=== PATIENT | female | born 1990 ===

== ENCOUNTER 2021-05-09 08:57 | Inpatient (IN) ==
[2021-05-09] MEDS ORDERED: OXYTOCIN 30 UNITS/500 ML BAG IV PRN (09:42)
--- NOTE | 2021-05-09 09:49 | History & Physical Report ---
Date of Service May 09, 2021 Assessment & Plan (1) with 38 completed weeks gestation: (2) Normal labor: Plan: admit. fetus category one. Discussed +/- of epidural and seems she wishes to proceed, will have anesthesia come in and speak with her. Had advised the patient and FOB that would need inspector balance wheel motion in labor and that he could not serve as inspector balance wheel motion for them in this higher pressure situation. anticipate . History of Present Illness Chief Complaint: labor Primary Care Provider: NO PCP Patient is a 30yo Tajik female who presents to labor and delivery complaining of contractions starting at 4am. She then had a gush of fluid on the way to the hospital at about 8:30. She is very uncomfortable and breathing through contractions. Patient is a [place] from [place] at 31 weeks. She has beta thalassemia confirmed by electorphoresis. FOB says he was tested in [place] and negative. She was diagnosed with GDM and has been diet controlled. last AC 39%. She is interviewed today with assistance of visual client professional. labs--A+/ab-/fi/rprnr/hepb-/hiv-/gc/ct-/ gtt 168/gbs neg Allergies Allergy/AdvReac Type Severity Reaction Status Date / Time No Known Allergies Allergy Verified 05/09/21 09:09 Home Medications Medication Instructions Recorded Confirmed Type prenat.vits,anahy,gmh-vzwv-pkyru 1 tab PO DAILY 05/08/21 05/09/21 History Patient History Medical History No known health problems Surgical History No history of previous surgery Social History Smoking Status: Never smoker Hx Alcohol Use: No Hx Substance Use: No Preferred Language: Tajik Communication Ability: Effective Supervisor Instrument Repair Required: Yes Beliefs That Will Affect Care: None marital status: marital status details: Hanny (37) [phone] Current Living Situation: Spouse Current Living Situation Comment: lives with angelitae current occupational status: unemployed Other Information That Helps Us Care for You: No Feels Safe at Home: Yes and No Is there a partner from a previous relationship who is making you feel unsafe now?: No Any Concerns about Your Family Situation: No Would You Like to Speak to Someone About Your Situation: No Safety Concerns: Feels Safe At This Time Assistive Devices: None OB History 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 History noncontributory Review of Systems All systems reviewed & are unremarkable except as noted in HPI & below Physical Exam Constitutional: WD/WN, vitals as above Gastrointestinal (Abdomen): soft, gravid, nt Psychiatric: A+Ox3, euthymic affect Genitourinary: cx--stretchy /-2 toco--q3 min efm--120s wtih mod variability, accels to 150s, no decels [facility] & Data ([facility]) Vital Signs (Past 12 Hours) Vital Signs Temp Pulse Resp BP 05/09/21 09:06 36.7 C 107 H 20 111/76 Code Status & VTE Plan VTE Prophylaxis Plan VTE Prophylaxis will be ordered: No Coding Level of Care Code None Diagnoses with 38 completed weeks gestation Z3A.38 Normal labor O80; Z37.9
[2021-05-09] MEDS ORDERED: BUPIVACAINE 0.25% 30 ML VIAL ONE ×2 (10:06→10:08)
[2021-05-09] MEDS ORDERED: ePHEDrine sulfate 50 MG/ML AMP ONE (10:06)
[2021-05-09] MEDS ORDERED: SODIUM CHLORIDE 0.9% INJ 10 ML VIAL ONE (10:06)
[2021-05-09] MEDS ORDERED: fentaNYL citrate 100 MCG/2 ML VIAL ONE (10:06)
[2021-05-09] MEDS ORDERED: fentaNYL 2MCG/ML ROPIVACAINE 1.25MG/ML 100 ML BAG EPI ONE (10:07)
[2021-05-09] MEDS: LACTATED RINGER'S 1,000 ML IV PRN ×2 (10:09→14:17)
--- NOTE | 2021-05-09 10:56 | Anesthesiology Consultation ---
Date of Service May 09, 2021 Assessment & Plan Chart Review Chart Review: Acceptable Risk for Labor Epidural Consults Requested none History Height/Weight Height: 5 ft 4 in Weight: 75.296 kg Allergies Allergy/AdvReac Type Severity Reaction Status Date / Time No Known Allergies Allergy Verified 05/09/21 09:09 Medications Home Medications Medication Instructions Recorded Confirmed Last Taken prenat.vits,anahy,dyr-dmal-kyhzq 1 tab PO DAILY 05/08/21 05/09/21 05/08/21 08:00 Active Medications Generic Name Dose Route Start Last Admin Trade Name Freq PRN Reason Stop Dose Admin Lactated Ringer's 1,000 mls @ 125 mls/hr 05/09/21 09:42 05/09/21 10:09 Lr IV 05/11/21 09:41 999 mls/hr .Q8H PRN Administration L&D Protocol Protocol Past Medical History Medical History No known health problems Past Family History Family History (Updated 05/09/21 @ 09:56 by Emy Naik RN) Other No history of previous surgery No known health problems Past Surgical History Surgical History No history of previous surgery Social History Smoking Status: Never smoker Hx Alcohol Use: No Hx Substance Use: No Physical Exam Vital Signs Last Vital Signs Temp 36.7 C 05/09/21 09:06 Pulse 100 H 05/09/21 10:54 Resp 20 05/09/21 10:40 BP 103/57 L 05/09/21 10:54 Pulse Ox 100 05/09/21 10:54 Testing Laboratory Results 05/09/21 10:05 POC Glucose 100 H
[2021-05-09] MEDS ORDERED: fentaNYL 2MCG/ML ROPIVACAINE 1.25MG/ML 100 ML BAG EPI PRN (10:59)
[2021-05-09] MEDS ORDERED: NALBUPHINE HCL INJ 10 MG/ML AMP IV PRN (10:59)
[2021-05-09] MEDS ORDERED: NALOXONE HCL 0.4 MG/1 ML VIAL/CARP IV PRN (10:59)
[2021-05-09] MEDS ORDERED: NALOXONE HCL 1 MG in SODIUM CHLORIDE 0.9% 1000ML 1,000 ML IV PRN (10:59)
[2021-05-09] MEDS ORDERED: diphenhydrAMINE 50 MG/ML VIAL IV PRN (10:59)
[2021-05-09] MEDS ORDERED: ePHEDrine sulfate 50 MG/ML AMP IV PRN (10:59)
[2021-05-09 11:04] LABS: Hemoglobin 10.5 g/dL (12.0-16.0); Mean Corpuscular Hemoglobin 19.8 pg (25-34); Mean Corpuscular Hgb Conc 31.8 g/dL (32-36); Mean Corpuscular Volume 62.3 fL (80-100); Platelet Count 254 K/uL (130-400); RDW Coefficient of Variation 15.3 % (11.5-14.5); RDW Standard Deviation 34.4 fL (36.4-46.3); White Blood Count 10.97 K/uL (4.8-10.8)
--- NOTE | 2021-05-09 12:51 | Labor Progress Brief Note ---
Date of Service May 09, 2021 Subjective comfortable with epidural, had a nap Assessment & Plan (1) with 38 completed weeks gestation: Plan: will begin stage 2. fetus category one. anticipate . Admission and Anticipated Discharge Date Admission Date: May 09, 2021 Physical Exam Physical Exam: cx--c/c/+2 toco--q2-3min efm--130s with mod variability, accels to 150s, no decels Results & Data ([facility]) Vital Signs (Past 12 Hours) Vital Signs Temp Pulse Resp BP Pulse Ox 05/09/21 12:45 91 H 105/69 05/09/21 12:44 83 99 05/09/21 12:39 80 99 05/09/21 12:34 74 100 05/09/21 12:32 81 109/76 05/09/21 12:29 93 H 100 05/09/21 12:24 100 H 100 05/09/21 12:19 89 100 05/09/21 12:17 97 H 105/76 05/09/21 12:14 95 H 100 05/09/21 12:09 76 100 05/09/21 12:04 85 100 05/09/21 12:02 89 110/74 05/09/21 12:00 20 05/09/21 11:59 72 100 05/09/21 11:54 80 100 05/09/21 11:49 88 100 05/09/21 11:45 98 H 103/69 05/09/21 11:44 83 100 05/09/21 11:39 74 100 05/09/21 11:34 91 H 100 05/09/21 11:30 71 20 104/65 05/09/21 11:29 82 100 05/09/21 11:25 90 105/71 05/09/21 11:24 84 100 05/09/21 11:20 83 105/66 05/09/21 11:19 88 100 05/09/21 11:17 67 107/68 05/09/21 11:14 72 100 05/09/21 11:10 75 107/68 05/09/21 11:09 79 100 05/09/21 11:05 84 103/70 05/09/21 11:04 92 H 100 05/09/21 11:00 71 18 102/65 05/09/21 10:59 74 100 05/09/21 10:58 90 105/67 05/09/21 10:56 36.7 C 90 20 111/64 05/09/21 10:54 100 H 103/57 L 100 05/09/21 10:52 72 96/57 L 05/09/21 10:50 71 102/65 05/09/21 10:49 70 99 05/09/21 10:48 68 106/65 05/09/21 10:46 69 104/64 05/09/21 10:44 67 102/64 97 05/09/21 10:42 60 135/73 05/09/21 10:40 62 20 108/67 05/09/21 10:39 63 100 05/09/21 10:34 73 96 05/09/21 10:29 84 100 05/09/21 10:24 72 100 05/09/21 10:22 94 H 92 05/09/21 10:19 76 99 05/09/21 09:06 36.7 C 107 H 20 111/76 Coding Level of Care Code None Diagnoses with 38 completed weeks gestation Z3A.38
--- NOTE | 2021-05-09 14:25 | Labor Progress Brief Note ---
Date of Service May 09, 2021 Subjective pushing about 1.25 hrs. Assessment & Plan (1) with 38 completed weeks gestation: Plan: pushing well. Fetus reassuring , making progress. anticipate . Admission and Anticipated Discharge Date Admission Date: May 09, 2021 Physical Exam Physical Exam: cx--c/c/+2-3 with push toco--q2-4min efm--130s with mod variability, variables with pushing. Results & Data ([facility]) Vital Signs (Past 12 Hours) Vital Signs Temp Pulse Resp BP Pulse Ox 05/09/21 14:22 97 H 89 L 05/09/21 14:19 81 116/61 99 05/09/21 14:16 112 H 160/115 H 05/09/21 14:14 72 100 05/09/21 14:09 84 100 05/09/21 14:04 84 99 05/09/21 14:01 90 104/61 05/09/21 14:00 37.5 C 20 05/09/21 13:59 104 H 98 05/09/21 13:54 83 100 05/09/21 13:49 94 H 100 05/09/21 13:47 83 112/65 05/09/21 13:44 79 100 05/09/21 13:39 128 H 99 05/09/21 13:34 122 H 100 05/09/21 13:31 74 116/70 05/09/21 13:30 20 05/09/21 13:29 99 H 100 05/09/21 13:24 80 100 05/09/21 13:19 102 H 97 05/09/21 13:18 88 86 L 05/09/21 13:15 134 H 110/60 05/09/21 13:14 105 H 100 05/09/21 13:13 118 H 85 L 05/09/21 13:09 129 H 100 05/09/21 13:05 106 H 92 05/09/21 13:04 104 H 100 05/09/21 13:02 114 H 181/98 H 05/09/21 13:00 20 05/09/21 12:59 86 100 05/09/21 12:54 127 H 100 05/09/21 12:49 112 H 100 05/09/21 12:45 37.1 C 91 H 20 105/69 05/09/21 12:44 83 99 05/09/21 12:39 80 99 05/09/21 12:34 74 100 05/09/21 12:32 81 109/76 05/09/21 12:30 20 05/09/21 12:29 93 H 100 05/09/21 12:24 100 H 100 05/09/21 12:19 89 100 05/09/21 12:17 97 H 105/76 05/09/21 12:14 95 H 100 05/09/21 12:09 76 100 05/09/21 12:04 85 100 05/09/21 12:02 89 110/74 05/09/21 12:00 20 05/09/21 11:59 72 100 05/09/21 11:54 80 100 05/09/21 11:49 88 100 05/09/21 11:45 98 H 103/69 05/09/21 11:44 83 100 05/09/21 11:39 74 100 05/09/21 11:34 91 H 100 05/09/21 11:30 71 20 104/65 05/09/21 11:29 82 100 05/09/21 11:25 90 105/71 05/09/21 11:24 84 100 05/09/21 11:20 83 105/66 05/09/21 11:19 88 100 05/09/21 11:17 67 107/68 05/09/21 11:14 72 100 05/09/21 11:10 75 107/68 05/09/21 11:09 79 100 05/09/21 11:05 84 103/70 05/09/21 11:04 92 H 100 05/09/21 11:00 71 18 102/65 05/09/21 10:59 74 100 05/09/21 10:58 90 105/67 05/09/21 10:56 36.7 C 90 20 111/64 05/09/21 10:54 100 H 103/57 L 100 05/09/21 10:52 72 96/57 L 05/09/21 10:50 71 102/65 05/09/21 10:49 70 99 05/09/21 10:48 68 106/65 05/09/21 10:46 69 104/64 05/09/21 10:44 67 102/64 97 05/09/21 10:42 60 135/73 05/09/21 10:40 62 20 108/67 05/09/21 10:39 63 100 05/09/21 10:34 73 96 05/09/21 10:29 84 100 05/09/21 10:24 72 100 05/09/21 10:22 94 H 92 05/09/21 10:19 76 99 05/09/21 09:06 36.7 C 107 H 20 111/76 Coding Level of Care Code None Diagnoses with 38 completed weeks gestation Z3A.38
[2021-05-09] MEDS ORDERED: ACETAMINOPHEN 325 MG TAB PO PRN (15:29)
[2021-05-09] MEDS ORDERED: oxyCODONE/ACETAMINOPHEN 5mg/325mg TAB PO PRN (15:29)
--- NOTE | 2021-05-09 15:37 | Delivery Summary ---
Vaginal Delivery Summary Date of Service May 09, 2021 Pre-operative Diagnosis: at 38 6/7 srom active labor GDM Post-operative Diagnosis: same Procedure: epidural repair of second degree laceration EBL: 350cc Anesthesia: epidural Procedure: Patient presented with clear srom and active labor at 5cm. She progressed spontaneously. The patient pushed for an hour and 45 min to deliver a viable male in HUE position. The nose and mouth were bulb suctioned on the perineum and the rest of the was then delivered without difficulty. There was a nuchal hand. The baby was vigorous. The nose and mouth were again bulb suctioned and the infant was placed in the maternal abdomen for drying and attention. Cord was clamped and cut at one minute of life. Cord blood obtained. Placenta delivered spontaneous, intact with a three vessel cord. Cervix/sulci/rectum were intact. A second degree perineal laceration was repaired in the normal standard fashion. Hemostasis obtained with dilute pitocin and fundal massage. Apgars were 8/9. Mother and baby doing well at the end of the delivery. Vaginal Delivery Summary and 2nd Degree LAC [facility] Vaginal Delivery Charge Vaginal Delivery Codes: 47649 global code for the antepartum, delivery, and post- Delivery Type Details: and 2nd Degree LAC
--- NOTE | 2021-05-09 15:39 | Anesthesia Procedure Note ---
Date of Service May 09, 2021 Anesthesia Post Epidural Note Vital Signs Vital Signs: Temp Pulse Resp BP Pulse Ox 37.5 C 89 18 102/71 98 05/09/21 14:00 05/09/21 15:33 05/09/21 15:33 05/09/21 15:33 05/09/21 15:14 Pain Intensity Abdomen: Pain Intensity: 0 Notes Mental Status: alert / awake / arousable Nausea / Vomiting: adequately controlled Pain: adequately controlled Airway Patency, RR, SpO2: stable & adequate BP & HR: stable & adequate Hydration State: stable & adequate Neuraxial Anesthesia: was administered and sensory block is resolving Anesthetic Complications: no major complications apparent and Pt Satisfied with anesthetic care Epidural: Removed without complications and With tip intact
[2021-05-09] MEDS ORDERED: bisacodyL 10 MG SUPP PR PRN (20:46)
[2021-05-09] MEDS ORDERED: HYDROCORTISONE ACETATE 25 MG SUPP PR PRN (20:46)
[2021-05-09] MEDS ORDERED: BENZOCAINE 20% AER SPR 82.5 GM CAN EXT PRN (20:46)
[2021-05-09] MEDS ORDERED: SUPERCREAM 0.870% 15 GM JAR EXT PRN (20:46)
[2021-05-09] MEDS: DOCUSATE SODIUM 100 MG CAP PO SCH (21:23)
[2021-05-10] MEDS: IBUPROFEN 600 MG TAB PO PRN ×2 (04:57→08:41)
--- NOTE | 2021-05-10 07:22 | Obstetrical Progress Note ---
Date of Service <Merry Sharif DO - Last Filed: 05/10/21 07:22> May 10, 2021 Assessment & Plan <Merry Sharif DO - Last Filed: 05/10/21 07:22> (1) Encounter for care and examination after delivery: 30 yo post op day1 from with history of GDM and 2nd degree laceration, doing well. -Continue routine post care. -vital signs reviewed and WNL (Tmax 36.7) -Blood Type a+, GBS-, Rubella immune -Encourage ambulation, monitor and control pain with Motrin, Percocet PRN, resume regular diet, monitor lochia -encourage breast feeding -hemoglobin 10.5 (8/3) -continue education on care, feeding, bathing Day #:: 1 <Irina Parada MD, FACOG - Last Filed: 05/10/21 08:08> (1) Encounter for care and examination after delivery: Subjective <Merry Sharif DO - Last Filed: 05/10/21 07:22> Ambulation: ambulating normally Voiding: no voiding problems Passing Gas:: No Diet Tolerance:: regular diet Lochia:: Small Feeding Type:: breast feeding Current Pain Level(1-10): 2 (says she feels good, pain well controlled on medication) Review of Systems Denies fever, chills, sweats Denies shortness of breath, difficulty breathing, chest pain, palpitations, chest pressure. Denies breast pain. Denies dysuria. Denies headache or changes in vision. Physical Exam <DO Nimesh Villanueva Last Filed: 05/10/21 07:22> General: Alert, oriented. No acute distress. Cardiac: Regular rate and rhythm, no murmurs/rubs/gallops. Respiratory: Clear to auscultation bilaterally a/p, no wheezes/rales/rhonchi. No increased work of breathing. Symmetrical chest rise. No respiratory distress. Abdomen: Soft, nontender, nondistended. Bowel sounds present. Uterus: Uterine fundus firm, palpable at umbilicus. Lower Extremities: No lower extremity edema or swelling. No deep calf pain. Fatemeh's negative bilaterally.. Results & Data ([facility]) <Merry Sharif DO - Last Filed: 05/10/21 07:22> Vital Signs (Past 12 Hours) Vital Signs Temp Pulse Pulse Resp BP BP Pulse Ox 05/10/21 04:05 36.7 C 72 20 96/64 L 98 05/09/21 23:35 37.1 C 69 20 109/75 99 05/09/21 22:55 37.1 C 84 16 129/81 96 Laboratory Results 05/09/21 05/09/21 05/09/21 Range/Units 13:55 12:00 10:05 WBC (4.8-10.8) K/uL RBC (4.2-5.4) M/uL Hgb (12.0-16.0) g/dL Hct (37-47) % MCV (80-100) fL MCH (25-34) pg MCHC (32-36) g/dL RDW Std Deviation (36.4-46.3) fL RDW Coeff of [place] (11.5-14.5) % Plt Count (130-400) K/uL POC Glucose 89 90 100 H (70-99) mg/dl COVID-19 Eval Order SARS-CoV-2, RNA, NAAT (NEGATIVE) 05/09/21 05/09/21 05/09/21 Range/Units 10:00 09:47 09:47 WBC 10.97 H (4.8-10.8) K/uL RBC 5.30 (4.2-5.4) M/uL Hgb 10.5 L (12.0-16.0) g/dL Hct 33.0 L (37-47) % MCV 62.3 L (80-100) fL MCH 19.8 L (25-34) pg MCHC 31.8 L (32-36) g/dL RDW Std Deviation 34.4 L (36.4-46.3) fL RDW Coeff of [place] 15.3 H (11.5-14.5) % Plt Count 254 (130-400) K/uL POC Glucose (70-99) mg/dl COVID-19 Eval Order Covid19 IDNow atMUTC SARS-CoV-2, RNA, NAAT NEGATIVE (NEGATIVE) Medications Administered Current Inpatient Medications Acetaminophen (Acetaminophen 325 Mg Tab) 650 mg PO Q6H PRN PRN Reason: Pain/[place]/Fever Stop: 06/08/21 15:28 Benzocaine (Benzocaine 20% Aer Spr 82.5 Gm Can) 1 appln EXT PRN PRN PRN Reason: Perineal Discomfort Stop: 06/08/21 20:45 Last Admin: 05/09/21 21:22 Dose: 82.5 appln Documented by: Bisacodyl (Bisacodyl 5 Mg Tabec) [address] [facility] Stop: 05/10/21 20:01 Bisacodyl (Bisacodyl 10 Mg Supp) 10 mg [place] DAILY PRN PRN Reason: No BM on 2nd post- day Stop: 06/08/21 20:45 Cocaine HCl (Supercream 0.870% 15 Gm Jar) 1 gm EXT BID PRN PRN Reason: Hemorrhoidal Inflammation Stop: 05/23/21 20:45 Last Admin: 05/09/21 21:23 Dose: 1 dose Documented by: Diphenhydramine HCl (Diphenhydramine 50 Mg/Ml Vial) 25 mg IV Q6H PRN PRN Reason: Itching Stop: 05/10/21 10:58 Docusate Sodium (Docusate Sodium 100 Mg Cap) 100 mg PO DAILY@ [facility] Stop: 06/08/21 20:59 Last Admin: 05/09/21 21:23 Dose: 100 mg Documented by: Ephedrine Sulfate (Ephedrine Sulfate 50 Mg/Ml Amp) 10 mg IV Q5M PRN PRN Reason: Hypotension Stop: 05/10/21 10:58 Hydrocortisone (Hydrocortisone Acetate 25 Mg Supp) 25 mg [place] BID PRN PRN Reason: Hemorrhoidal Inflammation Stop: 06/08/21 20:45 Oxytocin (Pitocin) 30 units in 500 mls @ 333.333 mls/hr IV .Q1H30M PRN; Protocol PRN Reason: Bleeding Control Stop: 06/08/21 09:41 Last Titration: 05/09/21 15:40 Dose: Infused Documented by: Lactated Ringer's (Lr) 1,000 mls @ 125 mls/hr IV .Q8H PRN; Protocol PRN Reason: L&D Protocol Stop: 05/11/21 09:41 Last Admin: 05/09/21 14:17 Dose: 125 mls/hr Documented by: Naloxone HCl 1 mg/ Sodium (Chloride) 1,002.5 mls @ 50 mls/hr IV .Q20H3M PRN PRN Reason: itching or nausea Stop: 05/10/21 10:58 Ibuprofen (Ibuprofen 600 Mg Tab) 600 mg PO Q4H PRN PRN Reason: Pain/[place]/Cramping/Fever Stop: 06/08/21 15:28 Last Admin: 05/10/21 04:57 Dose: 600 mg Documented by: Nalbuphine HCl (Nalbuphine Hcl Inj 10 Mg/Ml Amp) 5 mg IV Q10M PRN PRN Reason: itching or nausea Stop: 05/10/21 10:58 Naloxone HCl (Naloxone Hcl 0.4 Mg/1 Ml Vial/Carp) 0.1 mg IV UD PRN PRN Reason: Respiratory Depression Stop: 05/10/21 10:58 Oxycodone/Acetaminophen (Oxycodone/Acetaminophen 5mg/325mg Tab) 1 tab PO Q4H PRN PRN Reason: Pain not relieved by... Stop: 05/23/21 15:28 Prenat Multivit/Video Clerk/Iron/Folic Ac ( Vitamin 1 Tab) 1 tab PO DAILY@08 WENDI Stop: 06/09/21 07:59 Ropivacaine (Fentanyl 2mcg/Ml Ropivacaine 1.25mg/Ml 100 Ml Bag) 100 ml EPI PRN PRN; Protocol PRN Reason: Pain R/T Labor Stop: 05/10/21 10:58 <Irina Parada MD, FACOG - Last Filed: 05/10/21 08:08> Co-Signing Physician Notes Resident Physician Supervision Note: I interviewed and examined the patient. Discussed with Dr. Sharif and agree with findings and plan as documented in the note. Any exceptions or clarifications are listed here: Doing well. Interviewed with an audio stone cutter. Plan routine care. Documented By: Irina Parada MD, FACOG Resident Activity Tracking <Merry Sharif DO - Last Filed: 05/10/21 07:22> Resident Involvement: Resident Care Provided Care Provided: OB Delivery
[2021-05-10] MEDS: PRENATAL VITAMIN 1 TAB PO SCH (08:41)
[2021-05-10] MEDS: DOCUSATE SODIUM 100 MG CAP PO SCH ×2 (08:41→21:58)
[2021-05-10 09:03] LABS: Hematocrit (blood only) 30.8 % (37-47); Hemoglobin 9.8 g/dL (12.0-16.0)
[2021-05-10] MEDS ORDERED: bisacodyL 5 MG TABEC PO SCH (20:00)
--- NOTE | 2021-05-11 08:30 | Obstetrical Progress Note ---
Date of Service <Merry Sharif DO - Last Filed: 05/11/21 08:30> May 11, 2021 Assessment & Plan <Merry Sharif DO - Last Filed: 05/11/21 08:30> (1) Encounter for care and examination after delivery: 30 yo post op day2 from with history of GDM and 2nd degree laceration, doing well. -Continue routine post care. -vital signs reviewed and WNL (Tmax 36.6) -Blood Type a+, GBS-, Rubella immune -Encourage ambulation, monitor and control pain with Motrin, tylenol PRN, resume regular diet, monitor lochia -encourage breast feeding -hemoglobin 10.5-->9.8 (05/10) -continue education on care, feeding, bathing -discussed discharge with patient Day #:: 2 <Van Lyon MD - Last Filed: 05/12/21 13:27> (1) Encounter for care and examination after delivery: Subjective <Merry Sharif DO - Last Filed: 05/11/21 08:30> Ambulation: ambulating normally Voiding: no voiding problems Passing Gas:: Yes Diet Tolerance:: regular diet Lochia:: Small Feeding Type:: breast feeding Current Pain Level(1-10): 1 (pain well controlled on medication, is complaining of nipple pain) Review of Systems Denies fever, chills, sweats Denies shortness of breath, difficulty breathing, chest pain, palpitations, chest pressure. Denies breast pain. Denies dysuria. Denies headache or changes in vision. Physical Exam <Merry Sharif DO - Last Filed: 05/11/21 08:30> General: Alert, oriented. No acute distress. Cardiac: Regular rate and rhythm, no murmurs/rubs/gallops. Respiratory: Clear to auscultation bilaterally a/p, no wheezes/rales/rhonchi. No increased work of breathing. Symmetrical chest rise. No respiratory distress. Abdomen: Soft, nontender, nondistended. Bowel sounds present. Uterus: Uterine fundus firm, palpable at umbilicus. Lower Extremities: No lower extremity edema or swelling. No deep calf pain. Fatemeh's negative bilaterally.. Results & Data ([facility]) <Merry Dong, DO - Last Filed: 05/11/21 08:30> Vital Signs (Past 12 Hours) Vital Signs Temp Pulse Resp BP Pulse Ox 05/11/21 00:20 36.6 C 76 17 103/69 99 Laboratory Results 05/10/21 Range/Units 08:46 Hgb 9.8 L (12.0-16.0) g/dL Hct 30.8 L (37-47) % Medications Administered Current Inpatient Medications Acetaminophen (Acetaminophen 325 Mg Tab) 650 mg PO Q6H PRN PRN Reason: Pain/[place]/Fever Stop: 06/08/21 15:28 Benzocaine (Benzocaine 20% Aer Spr 82.5 Gm Can) 1 appln EXT PRN PRN PRN Reason: Perineal Discomfort Stop: 06/08/21 20:45 Last Admin: 05/09/21 21:22 Dose: 82.5 appln Documented by: Bisacodyl (Bisacodyl 10 Mg Supp) 10 mg [place] DAILY PRN PRN Reason: No BM on 2nd post- day Stop: 06/08/21 20:45 Cocaine HCl (Supercream 0.870% 15 Gm Jar) 1 gm EXT BID PRN PRN Reason: Hemorrhoidal Inflammation Stop: 05/23/21 20:45 Last Admin: 05/09/21 21:23 Dose: 1 dose Documented by: Docusate Sodium (Docusate Sodium 100 Mg Cap) 100 mg PO DAILY@ [facility] Stop: 06/08/21 20:59 Last Admin: 05/10/21 21:58 Dose: 100 mg Documented by: Hydrocortisone (Hydrocortisone Acetate 25 Mg Supp) 25 mg [place] BID PRN PRN Reason: Hemorrhoidal Inflammation Stop: 06/08/21 20:45 Oxytocin (Pitocin) 30 units in 500 mls @ 333.333 mls/hr IV .Q1H30M PRN; Protocol PRN Reason: Bleeding Control Stop: 06/08/21 09:41 Last Titration: 05/09/21 15:40 Dose: Infused Documented by: Lactated Ringer's (Lr) 1,000 mls @ 125 mls/hr IV .Q8H PRN; Protocol PRN Reason: L&D Protocol Stop: 05/11/21 09:41 Last Admin: 05/09/21 14:17 Dose: 125 mls/hr Documented by: Ibuprofen (Ibuprofen 600 Mg Tab) 600 mg PO Q4H PRN PRN Reason: Pain/[place]/Cramping/Fever Stop: 06/08/21 15:28 Last Admin: 05/10/21 08:41 Dose: 600 mg Documented by: Oxycodone/Acetaminophen (Oxycodone/Acetaminophen 5mg/325mg Tab) 1 tab PO Q4H PRN PRN Reason: Pain not relieved by... Stop: 05/23/21 15:28 Prenat Multivit/Fire Prevention Chief/Iron/Folic Ac ( Vitamin 1 Tab) 1 tab PO DAILY@08 WENDI Stop: 06/09/21 07:59 Last Admin: 05/10/21 08:41 Dose: 1 tab Documented by: <Van Lyon MD - Last Filed: 05/12/21 13:27> Co-Signing Physician Notes Patient seen and evaluated and agree with the above finding and plan. Stable for discharge Resident Activity Tracking <Merry Sharif DO - Last Filed: 05/11/21 08:30> Resident Involvement: Resident Care Provided Care Provided: OB Delivery
[2021-05-11] MEDS: DOCUSATE SODIUM 100 MG CAP PO SCH (09:13)
[2021-05-11] MEDS: PRENATAL VITAMIN 1 TAB PO SCH (09:13)
== END 2021-05-11 10:50 | disposition home or self-care (01) | DRG 807 ==
LOC: OPB 08:57 → 4S1 08:59 → 4S2 18:44